=== PATIENT | male | born 2000 | race Asian ===

== ENCOUNTER 2019-03-10 09:48 | Emergency (ER) | payer OTHER ==
[~2019-03-10] VITALS: Ht 170.2 cm; Wt 86.6 kg
[2019-03-10] MEDS ORDERED: LORAZEPAM 2MG/ML CPJ IM ONE (10:45)
[2019-03-10 11:40] VITALS: BP 115/89
== END 2019-03-10 11:40 | disposition home or self-care (01) ==
LOC: ER 09:56
DX: M79.671 Pain in right foot (principal); M79.89 Other specified soft tissue disorders; I10 Essential (primary) hypertension
CPT/HCPCS: 96372; 99283; J2060